=== PATIENT | female | born 1990 | race Caucasian/White ===

== ENCOUNTER 2017-10-27 22:27 | Observation (INO) | payer OTHER ==
[2017-10-27 22:56] LABS: ABSOLUTE BASOPHIL COUNT 0 /CUMM (0.0-0.2); ABSOLUTE EOSINOPHIL COUNT 0.3 /CUMM (0.0-0.7); ABSOLUTE GRANULOCYTE CT 5.1 /CUMM (1.4-6.5); ABSOLUTE LYMPH COUNT 2.3 /CUMM (1.2-3.4); ABSOLUTE MONOCYTE COUNT 0.6 /CUMM (0.10-0.60); BASOPHIL % 0.1 % (0.0-2.0); EOSINOPHIL % 4.1 % (0-5); HEMATOCRIT 40.7 % (37-47); MEAN CORPUSCULAR HGB 31.5 PG (27.0-31.0); MEAN CORPUSCULAR HGB CONC 34.3 G/DL (33.0-37.0); MEAN PLATELET VOLUME 7.7 FL (7.4-10.4); PLATELET COUNT 313 /CUMM (130-400); RED BLOOD CELL CT 4.42 /CUMM (4.20-5.40); WHITE BLOOD CELL COUNT 8.4 /CUMM (4.8-10.8)
--- NOTE | 2017-10-28 00:15 | ED PSYCHIATRIC COMPLAINT ---
History of Present Illness General Chief Complaint: ETOH/Drug Related Complaint Stated Complaint: PT CAME FROM [facility] FOR DETOX FOR ALOCHOL Source: patient, old records Exam Limitations: no limitations Vital Signs & Intake/Output Vital Signs & Intake/Output Vital Signs Date Time Temp Pulse Resp B/P B/P Pulse O2 O2 Flow FiO2 Mean Ox Delivery Rate 10/28 0749 83 15 93/52 97 Room Air Room Air 10/28 0702 78 18 87/52 98 Room Air 10/28 0630 78 87/52 10/28 0311 97.8 68 18 95/52 10/28 0250 97.8 68 18 95/52 100 Room Air 10/28 0034 98.5 84 20 116/73 99 Room Air 10/28 0030 98.5 84 20 116/73 10/28 0027 97.4 90 20 124/78 10/27 2236 97.4 90 20 124/78 100 ED Intake and Output 10/28 0000 10/27 1200 Intake Total Output Total Balance Patient 135 lb Weight Allergies Coded Allergies: No Known Allergies (10/27/17) Reconcile Medications Albuterol Sulfate (Proair Hfa) 90 MCG HFA.AER.AD 2 PUF INH Q4-6 PRN PRN ASTHMA (Reported) Triage Note: PER PT SENT BY [facility] FOR ETOH DETOX PER W-10 PT HALLUCINATING AND VISUAL DISTURBANCES PT REPORTS LAST DRINK THIS AM WELL COCAINE THIS AM VIA SNORTING PT AWAKE ALERT DENIES CO Triage Nurses Notes Reviewed? yes Onset: Just prior to arrival Duration: hour(s):, better, constant Timing: recent history Severity: severe Associated Symptoms: anxiety, impaired concentration LMP (ages 10-50): unknown : No Patient currently breastfeeds: No HPI: Patient admits to cocaine abuse and binge alcohol drinking. Her last use of cocaine and alcohol as 15 hours prior to admission. She was at [facility] for detox and developed visual hallucinations described as cartoon characters. She's given Keppra. She currently feels better denies fever chills nausea vomiting diarrhea abdominal pain chest pain shortness breath headache dysuria rash bleeding suicidal ideation homicidal ideation hallucination. (Sonu HARVEY,Randy) Past History Travel History Traveled to [place] past 21 day No Medical History Any Pertinent Medical History? see below for history Neurological: NONE EENT: NONE Cardiovascular: NONE Respiratory: NONE Gastrointestinal: NONE Hepatic: NONE Renal: NONE Musculoskeletal: NONE Psychiatric: alcohol dependence, substance abuse (cocaine) Endocrine: NONE Surgical History Surgical History: non-contributory Psychosocial History What is your primary language [place]se Tobacco Use: Current Daily Use Daily Tobacco Use Amount/Type: => 5 Cigarettes daily ETOH Use: heavy use Illicit Drug Use: cocaine Family History Hx Contributory? No (Randy Ascencio MD) Review of Systems Review of Systems Constitutional: Reports: no symptoms. EENTM: Reports: no symptoms. Respiratory: Reports: no symptoms. Cardiovascular: Reports: no symptoms. GI: Reports: no symptoms. Genitourinary: Reports: no symptoms. Musculoskeletal: Reports: no symptoms. Skin: Reports: no symptoms. Neurological/Psychological: Reports: see HPI, confusion. Hematologic/Endocrine: Reports: no symptoms. Immunologic/Allergic: Reports: no symptoms. All Other Systems: Reviewed and Negative (Randy Ascencio MD) Physical Exam Physical Exam General Appearance: well developed/nourished, alert, awake, anxious, mild distress Head: atraumatic, normal appearance Eyes: Bilateral: normal appearance, PERRL, EOMI. Ears, Nose, Throat: normal pharynx, normal ENT inspection, hearing grossly normal Neck: normal inspection, supple, full range of motion, no midline tenderness Respiratory: normal breath sounds, chest non-tender, no respiratory distress, quiet respiration, lungs clear Cardiovascular: regular rate/rhythm, normal peripheral pulses, norml femoral pulses equa Gastrointestinal: normal bowel sounds, soft, non-tender, no organomegaly Extremities: normal range of motion, no ligament instability Neurological/Psychiatric: no motor/sensory deficits, awake, alert, anxious, house mover II-XII nml as tested, oriented x 3 Appearance/Memory/Insight: disheveled, impaired insight Behavoir/Eye Contact/Speech: cooperative, normal speech Thoughts/Hallucinations: no apparent hallucination Skin: intact, normal color, warm/dry SAD PERSONS Done? patient not suicidal (Randy Ascencio MD) Progress Differential Diagnosis: drug intoxication, drug overdose, drug withdrawal, electrolyte abnormality, hypoglycemia Plan of Care: Orders Procedure Date/time Status Regular Diet 10/28 B Active Discharge Patient 10/28 0807 Active Patient Data 10/28 022 Active OXYGEN SETUP (GEN) 10/28 14 Active Saline Lock 10/[address] in observation 10/28 14 Active Vital Signs 06/17 0015 Active Activity/Ambulation 10/28 0015 Active Code Status 10/28 0015 Active Intake & Output 10/28 0004 Active CIWA 10/28 0001 Active CASE MANAGEMENT CONSULT 10/28 0001 Active URINE DRUG SCREEN FOR ER ONLY 10/28 2239 Complete URINALYSIS 10/28 2239 Complete HUMAN BETA HCG TITRE 10/27 224 Complete ETHANOL 10/27 224 Complete COMPREHENSIVE METABOLIC PANEL 10/28 2239 Complete CBC WITHOUT DIFFERENTIAL 10/28 2239 Complete Current Medications Sig/Christina Start time Last Medication Dose Stop Time Status Admin Gabapentin 300 MG Q8 10/28 0030 AC 10/28 (Neurontin) 0027 Clonidine 0.1 MG Q8 10/28 0000 AC 10/28 (Catapres) 0027 Laboratory Tests 10/27/170: Urine Opiates Screen < 100, Methadone Screen < 40, Barbiturate Screen < 60, Ur Phencyclidine Scrn < 6.00, Amphetamines Screen < 100, U Benzodiazepines Scrn < 85, Urine Cocaine Screen > 1000 H, Urine Cannabis Screen < 5.00, Urine Color YEL, Urine Clarity CLEAR, Urine pH 6.0, Ur Specific [place] 1.025, Urine Protein NEG, Urine Ketones NEG, Urine Nitrite NEG, Urine Bilirubin NEG, Urine Urobilinogen 0.2, Ur Leukocyte Esterase NEG, Ur Microscopic SEDIMENT EXAMINED, Urine RBC 10-15 H, Urine WBC 1-3 H, Ur Epithelial Cells MOD H, Urine Bacteria FEW H, Urine Mucus MOD H, Urine Hemoglobin MOD H, Urine Glucose NEG 10/27/172244: Anion Gap 10, Estimated GFR > 60, BUN/Creatinine Ratio 20.0, Glucose 90, Calcium 9.4, Total Bilirubin 0.4, AST 21, ALT 20, Alkaline Phosphatase 65, Total Protein 6.9, Albumin 3.9, Globulin 3.0, Albumin/Globulin Ratio 1.3, Beta HCG, Quant 261.5, CBC w Diff NO MAN DIFF REQ, RBC 4.42, MCV 92.0, MCH 31.5 H, MCHC 34.3, RDW 13.0, MPV 7.7, Gran % 61.0, Lymphocytes % 27.4, Monocytes % 7.4, Eosinophils % 4.1, Basophils % 0.1, Absolute Granulocytes 5.1, Absolute Lymphocytes 2.3, Absolute Monocytes 0.6, Absolute Eosinophils 0.3, Absolute Basophils 0, Serum Alcohol < 10.0 Hand-Off Endorsed To: Emil Le MD Endorsed Time: 0700 Pending: consult (case mgmt), other (AMY) (Randy Ascencio MD) Comments: 10/28/17 07:10 pt signed out to me by dr ascencio. 10/28/2017 8:06:38 AM Hanna feels a lot better. She feels she can return to [facility]. Physical examination reveals an alert conversant and comfortable appearing patient. No obvious signs of withdrawal at this time. 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 (Emil Le MD) ED Attending Observation Initial Observation Note: I have seen and personally examined ZIGGY HOPE on 10/28/17 at 0016. I agree with the current emergency department documentation. The disposition (admission or discharge) is uncertain at this time, she needs a period of observation for the following reason(s): alcohol dependence / withdrawal The ED Nurse caring for this patient has been personally informed as to what the patient is being observed for. (Randy Ascencio MD) Observation Discharge: I have reevaluated ZIGGY HOPE on 10/28/17 at 0808. The patient is: (): Stable for discharge (): To be admitted to Nursing Floor (): To be placed in Observation on Nursing Floor ([X]): For transfer to other facility The patient was being observed for signs of continued hallucinations or severe withdrawal. As a result of that observation, I have determined the patient is stable for transfer to [facility]. (Emil Le MD)
[2017-10-28 00:30] VITALS: BP 116/73
[2017-10-28] MEDS ORDERED: PROAIR HFA8.5 GM INH (02:51)
[2017-10-28 03:11] VITALS: BP 95/52
[2017-10-28 07:49] VITALS: BP 93/52
[2017-10-28 11:12] VITALS: BP 98/57
== END 2017-10-28 16:22 ==
LOC: ERH 22:27 → ERHI 10-28 00:15 → CMPBEDREQ 10-28 14:33 → ERHI 10-28 16:22
PROVIDERS: Emergency Medicine
DX: F10.251 Alcohol dependence with alcohol-induced psychotic disorder with hallucinations (principal); F17.200 Nicotine dependence, unspecified, uncomplicated; H53.9 Unspecified visual disturbance; F14.151 Cocaine abuse with cocaine-induced psychotic disorder with hallucinations; F41.9 Anxiety disorder, unspecified; Z79.899 Other long term (current) drug therapy
CPT/HCPCS: 80307; 81001; G0378; G0480